=== PATIENT | male | born 1955 | race Caucasian/White ===

== ENCOUNTER 2024-07-19 10:06 | Outpatient (OUT) | payer MEDICARE, OTHER, SELFPAY ==
--- NOTE | 2024-07-19 | ECG_ITS ---
[facility] Test Date: 2024-07-19 Pat Name: Abran Horne Department: Room: - Gender: Male Sub Prior: : 1955 Requested By: NADER MALONE Order Number: [id number] Reading MD: RHYS BRITO Measurements Intervals [place] Rate: 66 P: 54 W[place]: 158 QRS: 75 QRSD: 82 T: 48 QT: 370 QTc: 389 Interpretive Statements SINUS RHYTHM NONSPECIFIC ST & T-WAVE ABNORMALITY No previous ECG available for comparison Electronically Signed On 07-19-2024 19:47:26 EST by RHYS BRITO
[2024-07-19 10:48] LABS: Basophils Percent Auto 0.3 % (0.2-2.0); Eosinophils Absolute Auto 0.2 10^3/uL (0.0-0.7); Eosinophils Percent Auto 3.5 % (0.9-7.0); Hematocrit 49.3 % (42.0-54.0); Hemoglobin 16.6 g/dL (14.0-18.0); Immature Granulocytes Abs Auto 0.02 10^3/uL (0.00-0.03); Immature Granulocytes Pct Auto 0.3 % (0.0-0.5); Lymphocytes Percent Auto 30.7 % (20.5-60.0); Mean Corpuscular HGB Conc 33.7 g/dL (29.9-35.2); Mean Corpuscular Hemoglobin 30.2 pg (25.9-34.0); Mean Corpuscular Volume 89.8 fL (80.0-94.0); Mean Platelet Volume 9.6 fL (9.5-13.5); Monocytes Absolute Auto 0.8 10^3/uL (0.3-0.8); Monocytes Percent Auto 12.2 % (1.7-12.0); Neutrophils Absolute Auto 3.4 10^3/uL (1.4-6.5); Platelet Count 164 10^3/uL (150-450); Red Blood Count 5.49 10^6/uL (4.70-6.10); Red Cell Distribution Width 15.1 % (11.0-15.0); White Blood Count 6.5 10^3/uL (4.0-11.0)
[2024-07-19 11:02] LABS: INR 1.03; Partial Thromboplastin Time 28.7 sec (22.3-36.2); Prothrombin Time 10.9 sec (9.0-11.6)
[2024-07-19 11:17] LABS: BUN Creatinine Ratio 14.7; Carbon Dioxide 31.7 mmol/L (21.0-32.0); Chloride 103 mmol/L (98-107); Estimated GFR (African America >60 (>=60 mL/min/1.73m^2); Estimated GFR (Non-African Ame >60 (>=60 mL/min/1.73m^2); Glucose 105 mg/dL (74-106); Potassium 4.7 mmol/L (3.5-5.1); Sodium 138 mmol/L (136-145)
== END 2024-07-19 10:07 | disposition home or self-care (01) ==
LOC: LAB 10:11
PROVIDERS: PCP Family Medicine; Visit Provider Urology
DX: M54.50 Low back pain, unspecified (principal); I10 Essential (primary) hypertension; R97.20 Elevated prostate specific antigen [PSA]; Z87.891 Personal history of nicotine dependence
CPT/HCPCS: 36415; 80048; 85025; 85610; 85730; 93005

== ENCOUNTER 2025-01-04 13:27 | Outpatient (OUT) | payer MEDICARE, OTHER, SELFPAY ==
--- OUTSIDE RECORDS SUMMARY | 2024-12-29 23:59 | XMS_ITS | Continuity of Care Document ---
Author Organization [facility] Address [address] [place] [address] Care Team Providers Care Sales Force Administrator Name Role Phone Rodney Davis Primary Care Physician Encounter [facility] [id number] Date(s): 12/29/24 - 12/29/[address] [address]- Discharge Disposition: Home (Routine DC) Attending Physician: Jessica Ngo Encounter Type: Clinic Allergies, Adverse Reactions, Alerts No Known Allergies Assessment and Plan Future Appointments Appointment Date:03/09/2025 11:00:00 AM Scheduled Provider: Location:[facility] Appointment Type:FM Medicare Wellness Subsequent Immunizations Not Given Vaccine Date Status Refusal Reason pneumococcal 13-valent vaccine 03/08/24 Not Given Refused by parent, guardian, or patient - reschedule influenza virus vaccine, inactivated 03/08/24 Not Given Patient Refuses influenza virus vaccine, inactivated 06/22/23 Not Given Refused by parent, g uardian, or patient - reschedule influenza virus vaccine, inactivated 03/30/23 Not Given Patient Refuses influenza virus vaccine, inactivated 09/03/21 Not Given Refused by parent, g uardian, or patient - reschedule SARS-CoV-2 (COVID-19) Ad26 vaccine 09/03/21 Not Gi nicholas Patient Refuses Medications docusate 100 mg, Oral, BID, Refills(s) 0 Start Date: 11/29/24 Status: Ordered Repeat number: 1 oxyCODONE 5 mg Tab 5 mg = 1 tab(s), Oral, q6hr, PRN as needed for pain, X 12 dose(s), Refills(s) 0 Start Date: 11/29/24 Status: Ordered Repeat number: 1 Problem List Condition Confirmation Course Effective Dates Status H ealth Status Informant Back pain Confirmed Active BMI 28.0-28.9,adult Confirmed Resolved Overweight (BMI 25.0-29.9) Confirmed Active BMI 30.0-30.9,adult Confirmed Active Chronic pain Confirmed Active Difficulty walking Confirmed Active Dizziness Confirmed Active Eczema Confirmed Active Clubbed fingers Confirmed Active Hip joint prosthesis present Confirmed Active History of total replacement of left hip joint Confirmed Active HTN (hypertension) Confirmed Active Lung cancer screening declined by patient Confirmed Active Prostate cancer Confirmed Active Osteoarthrosis, hip Confirmed Active BMI 29.0-29.9,adult Confirmed Active Elevated PSA Confirmed Active Smoker Confirmed Active Procedures Procedure Date Related Diagnosis Body Site Status MR/US fusion guided prostate biopsy 08/02/24 Completed Ankle fracture Completed Blood clot Completed Hip arthroplasty Complete d Social History Social History Type Response Smoking Status 10 or more cigarette s (1/2 pack or more)/day in last 30 days;Never; Type: Cigarettes; Concerns about tobacco use in household: No; Smoking Cessation Yes 1 entered on: 08/15/24 Sex Male Sex Representation Male (finding) 1Patient admites to 1/2 pack a day since age of 15 years. Patient Care team information Care Team Personnel Name: Blaise Galarza Position: FT Wedger Machine - Self Assign Member Role: Collar Fuser Name: Ryan DAMIAN, Rodney Fleming Member Role: Primary Care Physician Address: [address] [place] [address] Telecom: Care Team Related Persons Name: BUSHRA CARPIO Name: BUSHRA CARPIO Insurance Providers Guarantor name: Health Plan Information #: 1 Payer: NA Payer Identifier: [id number] Member Number: [id number] Group Number: [id number] Subscriber Identifier: [id number] Relationship to Subscriber: Self Coverage Type: MEDICARE Coverage Verification Date: NA Telecom: NA Address: Health Plan Information #: 2 Payer: NA Payer Identifier: [id number] Member Number: [id number] Group Number: PlanN Subscriber Identifier: [id number] Relationship to Subscriber: Self Coverage Type: PRIVATE HEALTH INSURANCE Coverage Verification Date: NA Telecom: NA Address: NA
--- OUTSIDE RECORDS SUMMARY | 2025-01-04 13:31 | XMS_ITS | Clinical Summary ---
Author Organization [facility] Address [address] [place] [place] [address] Care Team Providers Care Sales Support Advisor Name Role Phone Rodney Davis MD Primary Care Provider [phone] Allergies No known active allergies Medications No known medications Active Problems Problem Noted Date Diagnosed Date History of total left hip replacement 09/10/2023 Primary osteoarthritis of left hip 09/10/2023 Encounters Date Type Department Care Team Description 10/18/2024 11:15 AM EDT Office Visit [facility] [address] [place] [address] [phone] Jr. Ike Avila DO Primary osteoarthritis of right hip (Primary Dx); Right hip pain 10/18/2024 Bamboo flowsheet [facility] [place] [address] [phone] Jr. Ike Avila DO 10/18/2024 Travel 10/10/2024 2:15 PM EDT Office Visit [facility] [place] [address] Ambrocio Dawson NP Primary osteoarthritis of right hip (Primary Dx); Right hip pain 10/10/2024 Bamboo flowsheet [facility] [address] [place] [address] Ambrocio Dawson NP 10/10/2024 Travel from Last 3 Months Family History Relation Name Status Comments Father Mother Social History Tobacco Use Types Packs/Day Years Used Date Smoking Tobacco: Every Day Cigarettes Smokeless Tobacco: Never Tobacco Cessation:Ready to Q uit: Not Asked; Counseling Given: Not Answered Alcohol Use Standard Drinks/Week Comments Yes 0 (1 standard drink = 0.6 oz pur e alcohol) 12-20/WK Sex and Gender Information Value Date Recorded Sex Assigned at Not on file Legal Sex Male 7:25 PM EDT Gender Identity Not on file Sexual Orientation Not on file Last Filed Vital Signs Vital Sign Reading Time Taken Comments Blood Pressure - - Pulse - - Temperature - - Respiratory Rate - - Oxygen Saturation - - Inhaled Oxygen Concentration - - Weight 99.8 kg (220 lb) 10/18/2024 11:37 AM EDT Height 182.9 cm (6') 10/18/2024 11:37 AM EDT Body Mass Index 29.84 10/18/2024 11:37 AM EDT Plan of Treatment Not on file Insurance MEDICARE [facility] [place]ANN FERRIS [id number] Care Teams Sales Support Advisor Relationship Specialty Start Date End Date Rodney Davis MD PCP - General Family Medicine 09/15/23
--- OUTSIDE RECORDS SUMMARY | 2025-01-04 13:31 | XMS_ITS | Clinical Summary ---
Author Organization [facility] Address [address] [place] [id number] Care Team Providers Care Ict Account Manager Name Role Phone Prasanna Campbell MD Unavailable Rodney Davis MD Primary Care Provider [phone] Allergies No known active allergies Medications oxybutynin (DITROPAN) 5 mg tablet Take 1 tablet by mouth three times a day for 7 days. 21 tablet 11/28/2024 11:57 AM EDT 11/28/2024 Active Tadalafil (CIALIS) 5 mg tablet Take 1 tablet by mouth once daily. 30 tablet 2 12/09/2024 03/09/20 25 Active apixaban (ELIQUIS) 2.5 mg tab(s) Take 1 tablet by mouth two times a day for 21 days. 42 tablet 11/28/2024 11:57 AM EDT 11/28/2024 12/20/19 25 oxyCODONE IR (ROXICODONE) 5 mg immediate release tabletIndicatio ns:Postoperativ e pain Take 1 tablet by mouth every 6 hours as needed for pain for up to 12 doses. 12 tablet 11/28/2024 11:57 AM EDT 11/28/2024 12/06/19 25 docusate sodium (COLACE) 100 mg capsule Take 1 capsule by mouth two times a day. 60 capsule 11/28/2024 12/29/19 25 Active Problems Problem Noted Date Diagnosed Date Nicotine use disorder, F17.2 11/29/2024 Tobacco use 11/18/2024 Assessment & Plan (11/18/2024 9:53 AM EDT): -Smokes 5 packs per week -37.5 pack year history Right hip pain 11/18/2024 Assessment & Plan (11/18/2024 9:53 AM EDT): -Takes Aleve PRN -Uses cane with ambulation History of DVT (deep vein thrombosis) 11/18/2024 Assessment & Plan (11/18/2024 9:54 AM EDT): -Hx in RLE approx 10 years ago -Treated acutely with blood thinner -Denies known recurrences HTN (hypertension) 11/18/2024 Assessment & Plan (11/18/2024 9:55 AM EDT): -Patient has been prescribed losartan by his PCP, did not fill the prescription d/t insurance issues and cost -BP today 141/74 -Denies cardiac symptoms -EKG pending Prostate cancer 11/01/2024 Encounters Date Type Department Care Team Description 12/09/2024 2:30 PM EDT [facility] Urology [address] [place] [id number] Suzy Mckeon MD Prostate cancer (HCC) (Primary Dx) 11/25/2024 10:40 AM EDT Anesthesia Event Admitting [address] [place] [address] Timothy Caballero DO Chapman, Madeline, FRANK 11/25/2024 10:01 AM EDT - 11/25/2024 4:12 PM EDT Surgery Admitting [address] [place] [address] John Saucedo MD ROBOTIC LAPAROSCOPIC RETROPUBIC RADICAL PROSTATECTOMY W/ NERVE SPARING 11/25/2024 7:25 AM EDT - 11/28/2024 2:55 PM EDT Hospital Encounter HOSP MAIN [id number] [address] [place] [address] John Saucedo MD Malignant neoplasm of prostate (HCC) [C61] Discharge Disposition: Home 11/25/2024 Travel 11/18/2024 2:30 PM EDT Office Visit Urology [address] [address] Stacy Barriga APRN.CNP Pre-op exam (Primary Dx); Screening for genitourinary condition 11/18/2024 12:50 PM EDT Procedure Cardiology [address] [address] 11/18/2024 10:50 AM EDT PAT Pre Anesthesia [address] [address] 5, Pacc Main Pre-op evaluation (Primary Dx); Tobacco use; Right hip pain; History of DVT (deep vein thrombosis); Hypertension, unspecified type 11/18/2024 Travel 11/18/2024 Patient Outreach Urology [address] [address] Stacy Barriga APRN.CNP 11/08/2024 Patient Update [facility] [place] [address] Barbi Gonzalez RN 11/01/2024 2:10 PM EDT Office Visit Urology [address] [address] John Saucedo MD Prostate cancer (HCC) (Primary Dx); Screening for genitourinary condition 11/01/2024 Travel 11/01/2024 Patient Outreach Urology [address] [address] John Saucedo MD from Last 3 Months Family History Medical History Relation Comments Colon Cancer Father Cervical Cancer Mother Anesthesia Problems No Family History Relation Status Comments Father Mother Social History Tobacco Use Types Packs/Day Years Used Date Smoking Tobacco: Every Day Cigarettes 0.8 50 Smokeless Tobacco: Never Tobacco Cessation:Ready to Q uit: Not Asked; Counseling Given: Not Answered Comments:5 packs per week Alcohol Use Standard Drinks/Week Comments Yes 15 (1 standard drink = 0.6 oz pu re alcohol) 12 pack beers per week Sex and Gender Information Value Date Recorded Sex Assigned at Not on file Legal Sex Male 11:35 AM EDT Gender Identity Not on file Sexual Orientation Not on file Last Filed Vital Signs Vital Sign Reading Time Taken Comments Blood Pressure 154/83 11/28/2024 7:45 AM EDT Pulse 75 11/28/2024 7:45 AM EDT Temperature 36.9 C (98.4 F) 11/28/2024 3:10 AM EDT Respiratory Rate 16 11/28/2024 3:10 AM EDT Oxygen Saturation 94% 11/28/2024 7:45 AM EDT Inhaled Oxygen Concentration - - Weight 96.2 kg (212 lb) 11/25/2024 8:15 AM EDT Height 182.9 cm (6') 11/25/2024 8:15 AM EDT Body Mass Index 28.75 11/25/2024 8:15 AM EDT Plan of Treatment Upcoming Encounters Date Type Department Care Team (Latest Contact Info) Description 01/25/2025 9:15 AM EDT [facility] Urology [address] [address] Delphine Reyes MD [address] [place] [address] Provider phone call 03/28/2025 1:10 PM EDT Office Visit Urology [address] [address] John Saucedo MD [address] [address] 4 Month Follow Up Health Maintenance Due Date Last Done Comments Abdominal Aortic Aneurysm Screening 1954 Annual PCP Team Chronic Dise ase Visit 1972 Anxiety Screening 1972 Depression Screening 1972 Hepatitis C Screening 1972 DTaP,Tdap,Td Vaccine (1 - Tdap) 1973 Pneumococcal Vaccine: 50+ (1 of 2 - PCV) [address] Colonography 1999 Colonoscopy 1999 Fecal Occult Blood 1999 Sigmoidoscopy 1999 Lung Cancer Screening 2004 Shingrix Vaccine (1 of 2) 2004 RSV Vaccine (1 - Risk 60-74 years 1-dose series) 2014 Medicare Annual Wellness Visit 08/06/2019 Covid-19 Vaccine (1 - 2023-2 5 season) 2024 Advance Directive Discussion 07/06/2024 Influenza Vaccine (Season Ended) 2025 Cologuard (FIT-DNA) 03/18/2025 03/18/2022 Colorectal Cancer Screening 03/18/2025 Diabetes Screening 11/29/2027 11/28/2024, 0 11/27/2024, 11/26/2024, Additional history exists Medical Devices Implanted Type Area Swine Extension Field Specialist Device Identifier Shelf Expiration Date Model / Serial / Lot Screws And Plate 25 Years Ago Neck Left Hip Replacement 2021 Bone - Hip Procedures Procedure Name Priority Date/Time Associated Diagnosis Comments BASIC METABOLIC PANEL Routine 11/28/2024 5:36 AM EDT COMPLETE BLOOD COUNT Routine 11/28/2024 5:36 AM EDT BASIC METABOLIC PANEL STAT 11/27/2024 6:50 AM EDT COMPLETE BLOOD COUNT STAT 11/27/2024 6:50 AM EDT BASIC METABOLIC PANEL Routine 11/26/2024 5:36 AM EDT CBC + DIFF Routine 11/26/2024 5:36 AM EDT TOX SCREEN ROUT UR Routine 11/26/2024 5: 25 AM EDT PROTHROMBIN TIME Routine 11/25/2024 5:40 PM EDT GGT BLD Routine 11/25/2024 5:40 PM EDT ETHANOL CONFIRMATION, PLASMA Routine 11/25/2024 5:40 PM EDT CBC + DIFF STAT 11/25/2024 5:40 PM EDT BASIC METABOLIC PANEL STAT 11/25/2024 5:40 PM EDT SURGICAL PATHOLOGY Routine 11/25/2024 4: 15 PM EDT Malignant neoplasm of prostate (HCC) PERIPHERAL IV PLACEMENT Routine 11/25/2024 10:57 AM EDT INTUBATION Routine 11/25/2024 10:55 AM EDT LAPS PROSTECT RETROPUBIC RAD W/NRV SPARING ROBOT 11/25/2024 10:24 AM EDT Malignant neoplasm of prostate (HCC) UA DIP, URINE (POC) Routine 11/18/2024 1 1:04 AM EDT Screening for genitourinary condition ECG COMPLETE Routine 11/18/2024 9:09 AM EDT Malignant neoplasm of prostate (HCC) CONFIRM BLOOD TYPE Routine 11/18/2024 9: 00 AM EDT Malignant neoplasm of prostate (HCC) TYPE + SCREEN,30 DAY Routine 11/18/2024 8:56 AM EDT Malignant neoplasm of prostate (HCC) PROTHROMBIN TIME Routine 11/18/2024 8:56 AM EDT Malignant neoplasm of prostate (HCC) Neoplasm of unspecified behavior of unspecified site ACTIVATED PTT Routine 11/18/2024 8:56 AM EDT Malignant neoplasm of prostate (HCC) Neoplasm of unspecified behavior of unspecified site COMPREHENSIVE METABOLIC PANEL Routine 11/18/2024 8:56 AM EDT Malignant neoplasm of prostate (HCC) COMPLETE BLOOD COUNT Routine 11/18/2024 8:56 AM EDT Malignant neoplasm of prostate (HCC) EXTERNAL IMAGING 10/14/2024 8:04 AM EDT EXTERNAL LAB 10/14/2024 8:02 AM EDT EXTERNAL IMAGING 10/14/2024 8:01 AM EDT from Last 3 Months Results * (ABNORMAL) COMPLETE BLOOD COUNT (11/28/2024 5:36 AM EDT) Only the most recent of3 resultswithin the time period is included. WBC 5.50 3.70 - 11.00 k/uL 11/28/2024 7:29 AM EDT [facility] RBC 4.64 4.20 - 6.00 m/uL 11/28/2024 7:29 AM EDT [facility] Hemoglobin 14.1 13.0 - 17.0 g/dL 11/28/2024 7:29 AM EDT [facility] Hematocrit 41.9 39.0 - 51.0 % 11/28/2024 7:29 AM EDT [facility] MCV 90.3 80.0 - 100.0 fL 11/28/2024 7:29 AM EDT [facility] MCH 30.4 26.0 - 34.0 pg 11/28/2024 7:29 AM EDT [facility] MCHC 33.7 30.5 - 36.0 g/dL 11/28/2024 7:29 AM EDT [facility] RDW-CV 16.3(H) 11.5 - 15.0 % 11/28/2024 7:29 AM EDT [facility] Platelet Count 140(L) 150 - 400 k/uL 11/28/2024 7:29 AM EDT [facility] Comment:Results checked and verified.No clot detected. MPV 10.0 9.0 - 12.7 fL 11/28/2024 7:29 AM EDT [facility] Absolute nRBC <0.01 <0.01 k/uL 11/28/2024 7:29 AM EDT [facility] Blood BLOOD SPECIMEN / Unknown Venipuncture / Unknown 11/28/2024 5:36 AM EDT 11/28/2024 6:17 AM EDT us John Saucedo MD LABORATORY Final Result [facility] [address] [facility] [address] [address], * BASIC METABOLIC PANEL (11/28/2024 5:36 AM EDT) Only the most recent of4 resultswithin the time period is included. [facility] Glucose 96 74 - 99 mg/dL 11/28/2024 7:15 AM [facility] Comment: The [place] Diabetes Association (ADA) provides guidance for cutoff values for fasting glucose and random glucose. The ADA defines fasting as no caloric intake for at least 8 hours. Fasting plasma glucose results between 100 to 125 mg/dL indicate increased risk for diabetes (prediabetes). Fasting plasma glucose results greater than or equal to 126 mg/dL meet the criteria for diagnosis of diabetes. In the absence of unequivocal hyperglycemia, results should be confirmed by repeat testing. In a patient with classic symptoms of hyperglycemia or hyperglycemic crisis, random plasma glucose results greater than or equal to 200 mg/dL meet the criteria for diagnosis of diabetes. Reference: Standards of Medical Care in Diabetes 2016, [place] [employer] Association. Diabetes Care. 2016.39(Suppl 1). BUN 16 9 - 24 mg/dL 11/28/2024 7:15 AM [facility] Creatinine 0.90 0.73 - 1.22 mg/dL 11/28/2024 7:15 AM [facility] Sodium 137 136 - 144 mmol/L 11/28/2024 7:15 AM [facility] Potassium 4.4 3.7 - 5.1 mmol/L 11/28/2024 7:15 AM [facility] Chloride 101 98 - 107 mmol/L 11/28/2024 7:15 AM [facility] CO2 26 22 - 30 mmol/L 11/28/2024 7:15 AM [facility] Anion Gap 10 8 - 15 mmol/L 11/28/2024 7:15 AM [facility] Calcium, Total 8.9 8.5 - 10.2 mg/dL 11/28/2024 7:15 AM [facility] Estimated Glomerular Filtration Rate 92 >=60 mL/min/1.7 3m 11/28/2024 7:15 AM [facility] Comment:Estimated Glomerular Filtration Rate (eGFR) is calculated using the 2020 CKD-EPI creatinine equation. This equation utilizes serum creatinine, sex, and age as parameters. The creatinine assay has traceable calibration to isotope dilution- mass spectrometry. Refer to KDIGO guidelines for clinical interpretation. In patients with unstable renal function, e.g. those with acute kidney injury, the eGFR may not accurately reflect actual GFR. Blood BLOOD SPECIMEN / Unknown Venipuncture / Unknown 11/28/2024 5:36 AM EDT 11/28/2024 6:17 AM EDT us John Saucedo MD LABORATORY Final Result [facility] [address] [facility] [address] [address], * (ABNORMAL) COMPLETE BLOOD COUNT AND DIFFERENTIAL (11/26/2024 5:36 AM EDT) Only the most recent of2 resultswithin the time period is included. WBC 10.04 3.70 - 11.00 k/uL 11/26/2024 7:02 AM EDT [facility] RBC 4.77 4.20 - 6.00 m/uL 11/26/2024 7:02 AM EDT [facility] Hemoglobin 14.3 13.0 - 17.0 g/dL 11/26/2024 7:02 AM EDT [facility] Hematocrit 42.2 39.0 - 51.0 % 11/26/2024 7:02 AM EDT [facility] MCV 88.5 80.0 - 100.0 fL 11/26/2024 7:02 AM EDT [facility] MCH 30.0 26.0 - 34.0 pg 11/26/2024 7:02 AM EDT [facility] MCHC 33.9 30.5 - 36.0 g/dL 11/26/2024 7:02 AM EDT [facility] RDW-CV 16.4(H) 11.5 - 15.0 % 11/26/2024 7:02 AM EDT [facility] Platelet Count 158 150 - 400 k/uL 11/26/2024 7:02 AM EDT [facility] MPV 10.1 9.0 - 12.7 fL 11/26/2024 7:02 AM EDT [facility] Neutrophils % 71.2 % 11/26/2024 7:02 AM EDT [facility] Abs Neut 7.15 1.45 - 7.50 k/uL 11/26/2024 7:02 AM EDT [facility] Lymphocytes % 12.4 % 11/26/2024 7:02 AM EDT [facility] Abs Lymph 1.24 1.00 - 4.00 k/uL 11/26/2024 7:02 AM EDT [facility] Monocytes % 15.7 % 11/26/2024 7:02 AM EDT [facility] Abs Burnett 1.58(H) <0.87 k/uL 11/26/2024 7:02 AM EDT [facility] Eosinophils % 0.1 % 11/26/2024 7:02 AM EDT [facility] Abs Eosin <0.03 <0.46 k/uL 11/26/2024 7:02 AM EDT [facility] Basophils % 0.2 % 11/26/2024 7:02 AM EDT [facility] Abs Baso <0.03 <0.11 k/uL 11/26/2024 7:02 AM EDT [facility] Immature Granulocytes % 0.4 % 11/26/2024 7:02 AM EDT [facility] Abs Immature Gran 0.04 <0.10 k/uL 025 7:02 AM EDT [facility] NRBC 0.0 /100 WBC 11/26/2024 7:02 AM EDT [facility] Absolute nRBC <0.01 <0.01 k/uL 11/26/2024 7:02 AM EDT [facility] Diff Type Auto 11/26/2024 7:02 AM EDT [facility] Blood BLOOD SPECIMEN / Unknown Venipuncture / Unknown 11/26/2024 5:36 AM EDT 11/26/2024 6:53 AM EDT us John Saucedo MD LABORATORY Final Result [facility] [address] [place] [address], * (ABNORMAL) TOXICOLOGY SCREEN, ROUTINE URINE (11/26/2024 5:25 AM EDT) Phencyclidine , Urine Negative Negative 11/26/2024 9:30 AM [facility] Comment:Cutoff threshold at 25 ng/mL. Benzodiazepin es, Urine Preliminary positive(A) Negative 11/26/2024 9:30 AM [facility] Comment:Cutoff threshold at 200 ng/mL. Cocaine, Urine Negative Negative 11/26/2024 9:30 AM [facility] Comment:Cutoff threshold at 300 ng/mL. Amphetamines, Urine Negative Negative 11/26/2024 9:30 AM [facility] Comment:Cutoff threshold at 1000 ng/mL. Cannabinoids, Urine Preliminary positive(A) Negative 11/26/2024 9:30 AM [facility] Comment:Cutoff threshold at 50 ng/mL. Opiates, Urine Negative Negative 11/26/2024 9:30 AM [facility] Comment:Cutoff threshold at 300 ng/mL. Barbiturates, Urine Negative Negative 11/26/2024 9:30 AM [facility] Comment:Cutoff threshold at 200 ng/mL. Ethanol, Urine <11 <11 mg/dL 11/26/2024 9:30 AM [facility] Oxycodone, Urine Preliminary positive(A) Negative 11/26/2024 9:30 AM [facility] Comment:Cutoff threshold at 100 ng/mL. Urine URINE SPECIMEN / Unknown Non Blood / Unknown 11/26/2024 5:25 AM EDT 11/26/2024 7:13 AM EDT [facility] - 11/26/2024 9:30 AM EDT Immunoassay screen only. Cross reactivity with other substances can occur with immunoassay screening. Detection of any drug(s) in this urine toxicology panel is presumptive only. These tests are for medical purposes only and should not be used for compliance monitoring, legal, or forensic use. Samples should be within normal physiological conditions (e.g. pH). This assay does not include adulteration/specimen validity testing. In clinical settings, confirmatory testing is at the practitioner's discretion [1]. If clinically indicated, confirmation by high specificity, quantitative methodology, which includes adulteration/specimen validity testing, may be requested on the same specimen through Client Services ([phone]) if contacted within 48 hours of initial testing. [1]Substance Abuse and Mental Health Services Administration (2012). Clinical Drug Testing in Primary Care Technical Assistance Publication Series 32. Department of Health and Human Services, [place], p.10. Delphine Reyes MD LABORATORY Final Result Performing Organization Address [facility] Co de Phone Number [facility] [address] [place] [address], [place] * ETHANOL CONFIRMATION, PLASMA (11/25/2024 5:40 PM EDT) Ethanol Conf, Plasma <5 <5 mg/dL 11/04 7:56 PM EDT [facility] Comment: Therapeutic range for methanol toxicity 100 - 150 mg/dL. Source: AACT Practice Guidelines on the Treatment of Methanol Poisoning. For medical purposes only. Not valid for forensic use. This test was developed, and its performance characteristics determined by the [facility] Department of Pathology and Laboratory Medicine. It has not been cleared or approved by the FDA. The [facility] Department of Pathology and Laboratory Medicine is regulated under CLIA as qualified to perform high- complexity testing. This test is used for clinical purposes. It should not be regarded as investigational or for research. Blood BLOOD SPECIMEN / Unknown Venipuncture / Unknown 11/25/2024 5:40 PM EDT 11/25/2024 5:54 PM EDT John Saucedo MD LABORATORY Final Result Performing Organization Address [facility] Co de Phone Number [facility] [address] [place] [address], [place] * PROTHROMBIN TIME (11/25/2024 5:40 PM EDT) Only the most recent of2 resultswithin the time period is included. PT Sec 11.7 9.7 - 13.0 sec 11/25/2024 6:06 PM EDT [facility] INR 1.1 0.9 - 1.3 11/25/2024 6:06 PM EDT [facility] Comment: Vitamin K Antagonist (VKA) Therapeutic Range: INR 2 to 3 (Target INR of 2.5) Note: For patients treated with VKA drugs, such as warfarin, the [place] [employer] 2012 Guideline recommends a therapeutic INR range of 2 to 3 (target INR of 2.5). This recommendation includes high-risk patients with antiphospholipid syndrome with previous arterial or venous thromboembolism, current-generation mechanical or bioprosthetic aortic heart valve replacement. Note: Patients with mechanical aortic valve replacement and additional risk factors for thromboembolic events (atrial fibrillation, previous thromboembolism, LV dysfunction, hypercoagulable conditions) or an older generation mechanical AVR (i.e., ball in-Cage) or any mechanical MVR should have a INR therapeutic range of 2.5 to 3.5 (target INR of 3). Guanako GH, et al. Chest 2012, 141:7S-47S Charis RA, et al. [facility] 2017, 70: 252-289 Blood BLOOD SPECIMEN / Unknown Venipuncture / Unknown 11/25/2024 5:40 PM EDT 11/25/2024 5:54 PM EDT us John Saucedo MD LABORATORY Final Result Performing Organization Address City/[facility]/ZIP Co de Phone Number [facility] [address] [place] [address], * GGT (11/25/2024 5:40 PM EDT) GGT 37 10 - 70 U/L 11/25/2024 7:04 PM EDT [facility] Blood BLOOD SPECIMEN / Unknown Venipuncture / Unknown 11/25/2024 5:40 PM EDT 11/25/2024 5:54 PM EDT John Saucedo MD LABORATORY Final Result Performing Organization Address City/[facility]/ZIP Co de Phone Number [facility] [address] * SURGICAL PATHOLOGY (11/25/2024 4:15 PM EDT) Case Report Surgical Pathology Report Case: [id number] Authorizing Provider: John Saucedo MD Collected: 11/25/2024 04:15 PM Ordering Location: Admitting Received: 11/25/2024 05:06 PM Pathologist: Kaveh Land MD Specimen: Prostate, Resection, prostate and seminal vesicles 12/09/2024 10:50 AM EDT [facility] FINAL DIAGNOSIS Prostate, radical prostatectomy: - Prostatic adenocarcinoma, Miah score 3+4=7 (Grade Group 2). - Extraprostatic extension is identified. - Lymphovascular invasion is identified. - Seminal vesicles are negative for malignancy. Radical Prostatectomy Morphology Summary Unfavorable histology: Present (Less than 10%) Large cribriform pattern 4: Present Intraductal carcinoma: Absent 12/09/2024 10:50 AM EDT [facility] at 1050 EDT Block for additional Biomarkers/Mol ecular studies A9 12/09/2024 10:50 AM EDT [facility] Synoptic Report PROSTATE GLAND: Radical Prostatectomy PROSTATE GLAND: RESECTION - A 8th Edition - Protocol posted: 03/25/2023 SPECIMEN Procedure: Radical prostatectomy TUMOR Histologic Type: Acinar adenocarcinoma, conventional (usual) Histologic Grade: Grade: Grade group 2 (Miah Score 3 + 4 = 7) Percentage of Pattern 4: 6 - 10% Intraductal Carcinoma (IDC): Not identified Cribriform Glands: Present Treatment Effect: Not identified TUMOR QUANTITATION: Estimated Percentage of Prostate Involved by Tumor: 21 - 30% Extraprostatic Extension (EPE): Present, nonfocal Urinary Bladder Neck Invasion: Not identified Seminal Vesicle Invasion: Not identified Lymphatic and / or Vascular Invasion: Present MARGINS Margin Status: Invasive carcinoma present at margin Linear Length of Margin(s) Involved by Carcinoma: Greater than or equal to 3 mm (non-limited) Focality of Margin Involvement: Unifocal Margin(s) Involved by Invasive Carcinoma: Right posterolateral (neurovascular bundle) REGIONAL LYMPH NODES Regional Lymph Node Status: Not applicable (no regional lymph nodes submitted or found) pTNM CLASSIFICATION (AJCC 8th Edition) Reporting of pT, pN, and (when applicable) pM categories is based on information available to the pathologist at the time the report is issued. As per the AJCC (Chapter 1, 8th Ed.) it is the managing physician s responsibility to establish the final pathologic stage based upon all pertinent information, including but potentially not limited to this pathology report. pT Category: pT3a pN Category: pN not assigned (no nodes submitted or found) ADDITIONAL FINDINGS Additional Findings: High-grade prostatic intraepithelial neoplasia (PIN) Additional Findings: Nodular prostatic hyperplasia 12/09/2024 10:50 AM EDT [facility] Gross Description A. Prostate, Resection Received in formalin labeled prostate and seminal vesicles is a prostate with attached seminal vesicles. The prostate without seminal vesicles weighs 40.0 g and measures 4.0 cm craniocaudally, 3.5 cm anteroposteriorly, and 4.4 cm transversely. The capsular surface is smooth and complete. The apex is conical. Upon palpation, no areas of firmness are identified. The gland is inked with blue ink on the right and yellow on the left. It is then dipped in alcohol to fix the ink and fixed in formalin for 24 hours. After fixation, a bladder neck section is obtained and the gland is serially sectioned from apex to base at 3 mm slices. An ink dot is placed in the basal side of each slice of tissue except for the basal section which is dotted on the apical surface. The cross sections reveal an ill-defined wang-white firm area in the right lateral and posterior aspect of the 6 to 18 mm slices measuring 1.5 x 1.2 x 1.2 cm. It extends to the periphery of the specimen. Rubbery nodularity is present. The seminal vesicles are unremarkable. Portions of vas deferens are unremarkable. Also received are multiple fragments of yellow-wang fibroadipose tissue aggregating to 4.4 x 3.5 x 1.0 cm. Sectioning reveals unremarkable fibroadipose tissue. Patternmaker Helper sections are submitted as follows: A1 right apex A2 left apex A3 right bladder neck A4 left bladder neck A5 3 mm right A6 3 mm left A7 6 mm right A8 6 mm left A9 9 mm posterior right A10 9 mm posterior left A11 12 mm anterior right A12 12 mm anterior left A13 12 mm posterior right A14 12 mm posterior left A15 15 mm posterior right A16 15 mm posterior left A17 18 mm anterior right A18 18 mm anterior left A19 18 mm posterior right A20 18 mm posterior left A21 21 mm posterior right A22 21 mm posterior left A23 24 mm anterior right A24 24 mm anterior left A25 24 mm posterior right A26 24 mm posterior left A27 27 mm posterior right A28 27 mm posterior left A29 30 mm anterior right A30 30 mm anterior left A31 30 mm posterior right A32 30 mm posterior left A33 33 mm posterior right A34 33 mm posterior left A35 right seminal vesicle A36 left seminal vesicle A37-A38 additional fat totally submitted Gross examination performed at [facility], [address] [place], [place] [id number] [facility] 11/29/24 11:34 AM 12/09/2024 10:50 AM EDT [facility] Clinical History Pre-op diagnosis: Malignant neoplasm of prostate (HCC) [C61] 12/09/2024 10:50 AM EDT [facility] Performing Lab Diagnostic interpretation performed at: [facility], [address] [place] [address] CLIA# [id number] [place] Man: Brad Cantrell MD 12/09/2024 10:50 AM EDT [facility] Disclaimer Laboratory Developed Test (LDT) Disclaimer: Performance characteristics of immunohistochemica l, immunofluorescent, and chromogenic in-situ hybridization tests have been determined by the performing laboratory within [facility]'s [facility] Pathology and Laboratory Medicine Department ([facility], [facility][1], [facility], [facility], [facility], [facility], or [facility]) in a manner consistent with CLIA requirements. One or more of these tests may not have been cleared or approved by the FDA. [facility] is regulated under CLIA as qualified to perform high-complexity testing. These tests are used for clinical purposes. These should not be regarded as investigational or for research. Positive and negative controls stain appropriately. 12/09/2024 10:50 AM EDT [facility] Tissue RADICAL PROSTATECTOMY / Unknown 11/25/2024 4:15 PM EDT 11/25/2024 5:06 PM EDT Comment:Pre-op diagnosis: Malignant neoplasm of prostate (HCC) [C61] us John Saucedo MD SURGICAL PATHOLOGY Final Resul t [facility] [address] [facility] [address] [place] [address], [place] * PERIPHERAL IV PLACEMENT (11/25/2024 10:57 AM EDT) Narrative Kacy Ng SRNA - 11/25/2024 10:57 AM EDT Kacy Ng SRNA 11/25/2024 11:36 AM PIV General Information Procedure Start Time/Medication Administration: 11/25/2024 10:57 AM Procedure End Time: 11/25/2024 10:57 AM Patient Location: OR Staffing SRNA: Kacy Ng SRNA Performed by: FRANK Preparation Sterility Preparation: hand hygiene performed prior to procedure, sterile gloves, drapes, and procedure tray, surgical cap used, mask used Sterility Technique Not Completely Performed Due to Extreme Emergency: No Site Prep: alcohol Procedure Details Indication: need for IV access Needle Size/Type: 18 gauge angiocath Orientation: Right Location: Wrist Imaging Guidance Used: No us Rainer rFiend MD ANESTHESIA ORDERABLES Edited R esult - Final * Airway (11/25/2024 10:55 AM EDT) Narrative Rainer Friend MD - 11/25/2024 10:55 AM EDT Rainer Friend MD 11/25/2024 12:16 PM Airway General Information Procedure Start Time/Medication Administration: 11/25/2024 10:55 AM Procedure End Time: 11/25/2024 10:55 AM Patient location during procedure: OR Timeout Performed Pre-procedure: timeout performed Consent Obtained: Yes Patient identity confirmed: arm band and patient Staffing Anesthesiologist: Rainer Friend MD Performed by: anesthesiologist Indications and Patient Condition Indications for airway management: anesthesia and airway protection Preoxygenated: yes anesthesia circuit Patient position: sniffing Method: asleep Cricoid Pressure: No Manual In-Line Stabilization: No Difficult Mask: No Airway Accessory: oral airway Final Airway Details Final airway type: endotracheal airway Final Endotracheal Airway: ETT Cuffed: yes Successful intubation technique: video laryngoscopy Devices used: Dynamixyz Endotracheal tube insertion site: oral Blade: Aniket Blade size: #4 ETT size (mm): 7.5 Measured from: lips Measurement (cm): 23 Placement verified by: capnometry Cormack-Lehane Classification: grade I - full view of glottis Number of attempts at approach: 2 Ventilation between attempts: none Airway trauma: none. Failed airway: no Airway not difficult Comments Poor end tidal reading with first attempt by FRANK, second attempt by MD For this procedure, I personally performed this procedure. Rainer Friend MD us Rainer Friend MD ANESTHESIA ORDERABLES Edited R esult - Final * UA DIP, URINE (POC) (11/18/2024 11:04 AM EDT) GLUCOSE UA (POCT) Negative Negative mg/dL [facility] BILIRUBIN UA (POCT) Negative Negative [facility] KETONE UA (POCT) Negative Negative mg/dL [facility] SPECIFIC GRAVITY UA (POCT) 1.020 1.005 - 1.030 [facility] HEMOGLOBIN/BLOOD UA (POCT) Negative Negative [facility] PH UA (POCT) 5.5 4.5 - 8.0 [facility] PROTEIN UA (POCT) Negative Negative mg/dL [facility] UROBILINOGEN UA (POCT) 0.2 Normal E.U./dL [facility] NITRITE UA (POCT) Negative Negative [facility] LEUKOCYTES UA (POCT) Negative Negative [facility] COLOR UA (POCT) [facility] CLARITY UA (POCT) Clear [facility] Urine specimen (specimen) URINE SPECIMEN / Unknown 11/18/2024 11:04 AM EDT Narrative [facility] - 11/18/2024 11:04 AM EDT Location:[facility], [address] [place] [address], [id number] [place] Stacy Barriga APRN.OUTREACH REP POC TESTING Final Resul t [facility] [address] * ECG COMPLETE (11/18/2024 9:09 AM EDT) Ventricular Rate 65 BPM [facility] Atrial Rate 65 BPM [facility] P-R Interval 154 ms [facility] QRS Duration 84 ms [facility] QT Interval 382 ms [facility] QTC Calculation (Bazett) 397 ms [facility] Calculated P [place] 35 degrees [facility] Calculated R [place] 44 degrees [facility] Calculated T [place] 57 degrees [facility] 11/18/2024 9:09 AM EDT Impressions [facility] - 12/20/2024 9:31 AM EDT SINUS RHYTHM WITH PREMATURE ATRIAL COMPLEXES OTHERWISE NORMAL ECG Confirmed by ALFRED PERRY MD ([id number]) on 12/20/2024 9:31:22 AM Narrative [facility] - 12/20/2024 9:31 AM EDT NAME : ALFRED AREC PID : [id number] : 1955 Gender : Male Race : ORD : [id number] Procedure Date : Nov 18 2024 09:09:44 Edit Date : Dec 20 2024 09:31:24 Diagnosis: SINUS RHYTHM WITH PREMATURE ATRIAL COMPLEXES OTHERWISE NORMAL ECG Confirmed by ALFRED PERRY MD ([id number]) on 12/20/2024 9:31:22 AM Test Reason : Location : 119 : A17 A17 Overread By : ALFRED PERRY MD Edited By : ALFRED PERRY MD Referred By : , Acquired by : HAJA ZAMARRIPA John Saucedo MD EKG Final Result Performing Organization Address City/State/[facility] Co de Phone Number [facility] [address] [phone] * CONFIRM BLOOD TYPE (11/18/2024 9:00 AM EDT) ABO A 11/18/2024 3:13 PM EDT [facility] Rh(D) Positive 11/18/2024 3:13 PM EDT [facility] Blood BLOOD SPECIMEN / Unknown Venipuncture / Unknown 11/18/2024 9:00 AM EDT 11/18/2024 9:00 AM EDT John Saucedo MD BLOOD BANK Final Result Performing Organization Address City/[facility] Co de Phone Number [facility] [address] [address], * TYPE AND SCREEN,30 DAY (11/18/2024 8:56 AM EDT) ABO A 11/18/2024 7:07 PM EDT [facility] Rh(D) Positive 11/18/2024 7:07 PM EDT [facility] Antibody Screen Negative 11/18/2024 7:07 PM EDT [facility] Blood BLOOD SPECIMEN / Unknown Venipuncture / Unknown 11/18/2024 8:56 AM EDT 11/18/2024 8:56 AM EDT John Saucedo MD BLOOD BANK Final Result Performing Organization Address [facility] de Phone Number [facility] [address] [address], [place] * COMPREHENSIVE METABOLIC PANEL (11/18/2024 8:56 AM EDT) [facility] Protein, Total 7.1 6.3 - 8.0 g/dL 11/18/2024 2:44 PM EDT [facility] Albumin 4.4 3.9 - 4.9 g/dL 11/18/2024 2:44 PM EDT [facility] Calcium, Total 9.7 8.5 - 10.2 mg/dL 11/18/2024 2:44 PM EDT [facility] Bilirubin, Total 0.5 0.2 - 1.3 mg/dL 11/18/2024 2:44 PM EDT [facility] Alkaline Phosphatase 53 38 - 113 U/L 11/18/2024 2:44 PM EDT [facility] AST 14 14 - 40 U/L 11/18/2024 2:44 PM EDT [facility] ALT 18 10 - 54 U/L 11/18/2024 2:44 PM EDT [facility] Glucose 88 74 - 99 mg/dL 11/18/2024 2:44 [facility] Comment: The [place] Diabetes Association (ADA) provides guidance for cutoff values for fasting glucose and random glucose. The ADA defines fasting as no caloric intake for at least 8 hours. Fasting plasma glucose results between 100 to 125 mg/dL indicate increased risk for diabetes (prediabetes). Fasting plasma glucose results greater than or equal to 126 mg/dL meet the criteria for diagnosis of diabetes. In the absence of unequivocal hyperglycemia, results should be confirmed by repeat testing. In a patient with classic symptoms of hyperglycemia or hyperglycemic crisis, random plasma glucose results greater than or equal to 200 mg/dL meet the criteria for diagnosis of diabetes. Reference: Standards of Medical Care in Diabetes 2016, [place] Diabetes Association. Diabetes Care. 2016.39(Suppl 1). BUN 18 9 - 24 mg/dL 11/18/2024 2:44 PM [facility] Creatinine 1.08 0.73 - 1.22 mg/dL 11/18/2024 2:44 PM [facility] Sodium 137 136 - 144 mmol/L 11/18/2024 2:44 PM [facility] Potassium 4.7 3.7 - 5.1 mmol/L 11/18/2024 2:44 PM [facility] Chloride 99 98 - 107 mmol/L 11/18/2024 2:44 PM [facility] CO2 28 22 - 30 mmol/L 11/18/2024 2:44 PM [facility] Anion Gap 10 8 - 15 mmol/L 11/18/2024 2:44 PM [facility] Estimated Glomerular Filtration Rate 74 >=60 mL/min/1.7 3m 11/18/2024 2:44 PM [facility] Comment:Estimated Glomerular Filtration Rate (eGFR) is calculated using the 2020 CKD-EPI creatinine equation. This equation utilizes serum creatinine, sex, and age as parameters. The creatinine assay has traceable calibration to isotope dilution- mass spectrometry. Refer to KDIGO guidelines for clinical interpretation. In patients with unstable renal function, e.g. those with acute kidney injury, the eGFR may not accurately reflect actual GFR. Blood BLOOD SPECIMEN / Unknown Venipuncture / Unknown 11/18/2024 8:56 AM EDT 11/18/2024 8:56 AM EDT John Saucedo MD LABORATORY Final Result Performing Organization Address [facility] Co de Phone Number [facility] [address] [address], [place] * ACTIVATED PARTIAL THROMBOPLASTIN TIME (11/18/2024 8:56 AM EDT) APTT 28.8 23.0 - 32.4 sec 11/18/2024 10:20 AM EDT [facility] Blood BLOOD SPECIMEN / Unknown Venipuncture / Unknown 11/18/2024 8:56 AM EDT 11/18/2024 8:56 AM EDT Narrative [facility] - 11/18/2024 10:20 AM EDT Unfractionated Heparin Therapeutic Ranges: Standard Heparin Nomogram: 53 to 78 seconds (anti-Xa level of 0.3 to 0.7 U/ml) Low Dose/ACS Nomogram: 49 to 67 seconds (anti-Xa level of 0.2 to 0.5 U/ml) Stroke Treatment Nomogram: 49 to 67 seconds (anti-Xa level of 0.2 to 0.5 U/ml) Note: The APTT therapeutic range has been determined for the current lot of laboratory APTT reagent in use throughout the [facility]. John Saucedo MD LABORATORY Final Result Performing Organization Address [facility] de Phone Number [facility] [address] [address], [place] * EXTERNAL IMAGING (10/14/2024 8:04 AM EDT) Anatomical Region Laterality Modality Other us External Provider PA-C RADIOLOGY Final Res ult * EXTERNAL LAB (10/14/2024 8:02 AM EDT) us External Provider PA-C LABORATORY Final Res ult * EXTERNAL IMAGING (10/14/2024 8:01 AM EDT) Anatomical Region Laterality Modality Other us External Provider [facility] Final Res ult from Last 3 Months Insurance MEDICARE [facility] Care Teams Ict Account Manager Relationship Specialty Start Date End Date Rodney Davis MD [address] [place] [id number] PCP - General Family Medicine 09/19/24 Prasanna Campbell MD Urology 09/19/24
--- OUTSIDE RECORDS SUMMARY | 2025-01-04 13:31 | XMS_ITS | Clinical Summary ---
Author Organization [employer] s tem Address [id number] [address] [place] [address] Care Team Providers Care Professor Of Business Administration Name Role Phone Rodney Davis MD Primary Care Provider [phone] Allergies No known active allergies Medications acetaminophen (TYLENOL) 325 mg tablet Take 650 mg by mouth every 6 (six) hours as needed for pain. Active Active Problems Problem Noted Date Diagnosed Date Primary localized osteoarthritis of left hip 02/2022 Family History Medical History Relation Name Comments COPD Father No Known Problems Mother Relation Name Status Comments Father Mother Social History Tobacco Use Types Packs/Day Years Used Date Smoking Tobacco: Every Day Cigarettes Smokeless Tobacco: Never Alcohol Use Standard Drinks/Week Comments Yes 0 (1 standard drink = 0.6 oz pur e alcohol) weekends, 2-3 beers Childcare Answer Date Recorded Childcare Unknown 12/15/2018 Employment Answer Date Recorded Employment Unknown 12/15/2018 Sex and Gender Information Value Date Recorded Sex Assigned at Not on file Legal Sex Male 12:01 PM EDT Gender Identity Not on file Sexual Orientation Not on file Last Filed Vital Signs Vital Sign Reading Time Taken Comments Blood Pressure 153/77 09/13/2021 2:50 PM EST Pulse 96 09/13/2021 2:50 PM EST Temperature 36.9 C (98.5 F) 09/13/2021 2:50 PM EST Respiratory Rate 17 09/13/2021 2:50 PM EST Oxygen Saturation 95% 09/13/2021 2:50 PM EST Inhaled Oxygen Concentration - - Weight 90.7 kg (200 lb) 09/11/2021 9:20 AM EST Height 182.9 cm (6' 0.01 ) 09/11/2021 9:20 AM ES T Body Mass Index 27.12 09/11/2021 9:20 AM EST Plan of Treatment Health Maintenance Due Date Last Done Comments Depression Screening 1966 Tobacco Screening 1966 Adult BMI Screening 1972 DTaP,Tdap and Td Vaccines (1 - Tdap) 1973 Zoster (Shingles) Vaccine (1 of 2) 2004 Fall Risk Screening 2019 Influenza Vaccine 03/06/2025 Goals Goal Patient Goal Type Associated Problems Recent Progress Patient-Stated? Author Home with son General Yes Flor Vallejo LSW Note: Evaluation of progress towards goal: Home with son's support and [facility] orthopedic PT [employer] Implanted Type Area Spring Repairer Helper Hand Device Identifier Shelf Expiration Date Model / Serial / Lot Shell Actb 56mm Hip 4 Hl Clr Cd [place] G7 F Hmsphr - [id number] - [id number] Implanted:Qt y: 1 on 09/11/2021 by Koby Sánchez DO at [facility] Orthopedic Implant Left: Hip [employer] 06/13/2031 [id number] / [id number] / [id number] Liner Actb 36mm F Vivacit-E Lum G7 Hip Strl Lf - [id number] - [id number] Implanted:Qt y: 1 on 09/11/2021 by Koby Sánchez DO at [facility] Orthopedic Implant Left: Hip [employer] 06/19/2026 [id number] / [id number] / [id number] Stem Fem 4 Hi Os Avenir Cmplt Hip Colr Strl Lf - [id number] Implanted:Qt y: 1 on 09/11/2021 by Koby Sánchez DO at [facility] Orthopedic Implant Left: Hip [employer] [id number] 12/03/2025 [id number] / / [id number] Head Fem 36mm +7mm 06/18 Tpr Vrsy Lgc Zml Hip Strl Rpl [id number] - [id number] Implanted:Qt y: 1 on 09/11/2021 by Koby Sánchez DO at [facility] Orthopedic Implant Left: Hip [employer] [id number] 08/05/2028 [id number] / / [id number] Screw Bn 30mm 6.5mm St Actb Bello Trlg Strl Rpl [id number] + [id number] + [id number] - [id number] - [id number] Implanted:Qt y: 1 on 09/11/2021 by Koby Sánchez, DO at [facility] Screw Left: Hip [employer] [id number] 05/06/2031 [id number] / [id number] / [id number] Screw Bn 30mm 6.5mm St Actb Bello Trlg Strl Rpl [id number] + [id number] + [id number] - [id number] - [id number] Implanted:Qt y: 1 on 09/11/2021 by Koby Sánchez, DO at [facility] Screw Left: Hip [employer] [id number] 03/08/2031 [id number] / [id number] / [id number] Insurance [place]IC[place] [address] Advance Directives * Full Code (Latest Code Status on File) Date Activated Date Inactivated Comments 09/11/2021 1:38 PM 09/13/2021 6:37 PM Care Teams Professor Of Business Administration Relationship Specialty Start Date End Date Rodney Davis MD [address] [place] [address] PCP - General Family Medicine 09/13/21
[2025-01-04 15:04] LABS: Prostate Specific Antigen Dx <0.13 ng/mL (<=4.00)
== END 2025-01-04 13:28 | disposition home or self-care (01) ==
LOC: LAB 13:29
PROVIDERS: PCP Family Medicine
DX: C61 Malignant neoplasm of prostate (principal)
CPT/HCPCS: 36415; 84153

== ENCOUNTER 2025-06-21 13:37 | Outpatient (OUT) | payer MEDICARE, OTHER, SELFPAY ==
--- OUTSIDE RECORDS SUMMARY | 2025-06-21 13:44 | XMS_ITS | Clinical Summary ---
Author Organization [employer] [facility] tem Address [id number] [address] [place] [address] Care Team Providers Care Sewer Pipe Offbearer Name Role Phone Rodney Davis MD Primary Care Provider [phone] Allergies No known active allergies Medications MedicationSigDispense QuantityRefillsLast FilledStart DateEnd DateStatus acetaminophen (TYLENOL) 325 mg tablet Take 650 mg by mouth every 6 (six) hours as needed for pain.Active Active Problems ProblemNoted DateDiagnosed DatePrimary localized osteoarthritis of left hip 09/10/2021 Family History Medical HistoryRelationNameCommentsCOPDFatherNo Known ProblemsMotherRelationName StatusCommentsFatherDeceasedMotherDeceased Social History Tobacco UseTypesPacks/DayYears UsedDateSmoking Tobacco: Every DayCigarettes Smokeless Tobacco: NeverAlcohol UseStandard Drinks/WeekCommentsYes0 (1 standard drink = 0.6 oz pure alcohol)weekends, 2-3 beersChildcareAnswerDate Recorded QjjdkmwppJuwlmta88/12/2019EmploymentAnswerDate RecordedEmploymentUnknown 12/15/2018Sex and Gender InformationValueDate RecordedSex Assigned at BirthNot on fileLegal YagNnnk5202/08/2015 12:01 PM EDTGender IdentityNot on fileSexual OrientationNot on file Last Filed Vital Signs Vital SignReadingTime TakenCommentsBlood Hfitalef725/7703 2:50 PM EST Ldvxl3988 2:50 PM DSMMolbivondqw18.9 ??C (98.5 ??F)09/13/2021 2:50 PM ESTRespiratory Izuf733709/13/2021 2:50 PM ESTOxygen Cbzxzsvgov37%09/13/2021 2:50 PM ESTInhaled Oxygen Concentration--Ihmvnd80.7 kg (200 lb)09/11/2021 9:20 AM EST Ngwydj660.9 cm (6' 0.01 )09/11/2021 9:20 AM ESTBody Mass Index27.12009/11/2021 9:20 AM EST Plan of Treatment Health MaintenanceDue DateLast DoneCommentsDepression Snrdlaakn05/13/1967Tobacco Jqufwacbu92/13/1967Adult BMI Pfobhgtet81/13/1973DTaP,Tdap and Td Vaccines (1 - Tdap)1973Zoster (Shingles) Vaccine (1 of 2)2004Fall Risk Screening 2019Influenza Rlrhmzh3903/06/2025RSV ( or age 60+ yrs) (1 - 1-dose 75+ series)2029 Goals GoalPatient Goal TypeAssociated ProblemsRecent ProgressPatient-Stated?Author Home with son Flor Albert LSW Note: Evaluation of progress towards goal: Home with son's support and [facility] orthopedic PT [employer] ImplantedTypeAreaManufacturerDevice IdentifierShelf Expiration DateModel / Serial / LotShell Actb 56mm Hip 4 Hl Clr Cd [place] G7 F Hmsphr - [id number] - [id number] Implanted:Qty: 1 on 09/11/2021 by Koby Sánchez DO at [facility] ImplantLeft: HipZimmer [id number] / [id number] / [id number] Actb 36mm F Vivacit-E Lum G7 Hip Strl Lf - [id number] - [id number] Implanted:Qty: 1 on 09/11/2021 by Koby Sánchez DO at [facility] ImplantLeft: HipZimmer [id number] / [id number] / [id number] Fem 4 Hi Os Avenir Cmplt Hip Colr Strl Lf - [id number] Implanted:Qty: 1 on 09/11/2021 by Koby Sánchez DO at [facility] ImplantLeft: HipZimmer [id number]/31/2026 [id number] / / [id number] Fem 36mm +7mm 06/18 Tpr Vrsy Lgc Zml Hip Strl Rpl [id number] - [id number] Implanted:Qty: 1 on 09/11/2021 by Koby Sánchez DO at [facility] ImplantLeft: HipZimmer [id number] / / [id number] Bn 30mm 6.5mm St Actb Bello Trlg Strl Rpl [id number] + [id number] + [id number] - [id number] - [id number] Implanted:Qty: 1 on 09/11/20[facility] Hip[facility]immer [id number] / [id number] / [id number] Bn 30mm 6[address]5mm St Actb Bello Trlg Strl Rpl [id number] + [id number] + [id number] - [id number] - [id number] Implanted:Qty: 1 on 09/11/2021 by [facility] HipZimmer [id number] / [id number] / [id number] [place] [address] Advance Directives * Full Code (Latest Code Status on File) Date ActivatedDate InactivatedComments09/11/2021 1:38 PM09/13/2021 6:37 PM Care Teams Team MemberRelationshipSpecialtyStart DateEnd Date Rodney Davis MD [address] [place] [address] PCP - GeneralFamily Medicine09/13/21
--- OUTSIDE RECORDS SUMMARY | 2025-06-21 13:45 | XMS_ITS | Clinical Summary ---
Author Organization [facility] Address [address], [address] [place] [address] Care Team Providers Care Veneer Stock Grader Name Role Phone Unavailable Primary Care Provider Unavailabl e Encounters DateTypeDepartmentCare LfzvMtdufjjuszv21/01/2025 9:45 AM EST - 06/05/2025 11:59 PM ESTHospital Encounter [facility] Physical Therapy [address] [place], [place] [phone] Nicolle Morales PTA Discharge Disposition: Home or Self Care05/29/2025 9:00 AM EST - 05/29/2025 11:59 PM ESTHospital Encounter [facility] Physical Therapy [address] [place], [place] [phone] Nicolle Morales PTA Discharge Disposition: Home or Self Care05/22/2025 9:45 AM EST - 05/22/2025 11:59 PM ESTHospital Encounter [facility] Physical Therapy [address] [place], [place] [phone] Nicolle Morales PTA Discharge Disposition: Home or Self Care05/15/2025 10:30 AM EST - 05/15/2025 11:59 PM ESTHospital Encounter [facility] Physical Therapy [address] [place] [address] Nicolle Morales PTA Discharge Disposition: Home or Self Care05/08/2025 9:30 AM EST - 05/08/2025 11:59 PM ESTHospital Encounter [facility] Physical Therapy [address] [place] [address] Nichole Akhtar, JESSICA Discharge Disposition: Home or Self Carefrom Last 3 Months Social History Tobacco UseTypesPacks/DayYears UsedDateSmoking Tobacco: Never AssessedSex and Gender InformationValueDate RecordedSex Assigned at BirthNot on fileLegal Sex Male08/15/2012 9:01 AM ESTGender IdentityNot on fileSexual OrientationNot on file Plan of Treatment Health MaintenanceDue DateLast DoneCommentsDepression Wnnarb8008/18/1966Hepatitis C bjdfiv2208/18/1972DTaP/Tdap/Td vaccine (1 - Tdap)08/18/19736332Tdpftc04/13/1995 Iqbwouxkkmn06/13/2000FIT/FOBT: Average risk1999Sigmoidoscopy/CT hsqaozmktbcv41/13/2000Pneumococcal 50+ years Vaccine (1 of 1 - PCV)2004 Shingles vaccine (1 of 2)2004Flu vaccine (#1)5COVID-19 Vaccine (1 - season)2025nnual Wellness Visit (Medicare)04/29/2025olorectal Cancer Dsrrtk2504/07/2028Fecal-DNA (Cologuard): Average risk810/09/2024, 2Respiratory Syncytial Virus (RSV) or age 60 yrs+ (1 - 1-dose 75+ series)2029Hepatitis A vaccineAged OutNo longer eligible based on patient's age to complete this topicHepatitis B vaccineAged OutNo longer eligible based on patient's age to complete this topicHib vaccineAged OutNo longer eligible based on patient's age to complete this topicMeningococcal (ACWY) vaccineAged OutNo longer eligible based on patient's age to complete this topicMeningococcal B vaccineAged OutNo longer eligible based on patient's age to complete this topicPolio vaccineAged OutNo longer eligible based on patient's age to complete this topic Insurance MemberSubscriberPlan / Payer (Effective 2019-Present)Name:Abran Arce Relation to Subscriber:SelfName:Abran Arce Payer ID:Not on file Group ID:Not on file Type:Not on file Address: [address] [id number]
--- OUTSIDE RECORDS SUMMARY | 2025-06-21 13:46 | XMS_ITS | Clinical Summary ---
Author Organization [facility] Address [address] [place] [address] Care Team Providers Care Facer Operator Name Role Phone Prasanna Campbell MD Unavailable [phone] Rodney Davis MD Primary Care Provider [phone] Allergies No known active allergies Medications MedicationSigDispense QuantityRefillsLast FilledStart DateEnd DateStatus oxybutynin (DITROPAN) 5 mg tablet Take 1 tablet by mouth three times a day for 7 days. 21 tablet 11/28/2024 11:57 AM EDT5Active Tadalafil (CIALIS) 5 mg tablet Indications:Prostate cancer (HCC)Take 1 tablet by mouth once daily. Take 1-2 hours before sexual activity. 90 tablet 5Active Active Problems ProblemNoted DateDiagnosed DateNicotine use disorder, F17.Tobacco use 11/18/2024 Assessment & Plan (11/18/2024 9:53 AM EDT): -Smokes 5 packs per week -37.5 pack year history Right hip pain11/18/2024 Assessment & Plan (11/18/2024 9:53 AM EDT): -Takes Aleve PRN -Uses cane with ambulation History of DVT (deep vein thrombosis)11/18/2024 Assessment & Plan (11/18/2024 9:54 AM EDT): -Hx in [place] approx 10 years ago -Treated acutely with blood thinner -Denies known recurrences HTN (hypertension)11/18/2024 Assessment & Plan (11/18/2024 9:55 AM EDT): -Patient has been prescribed losartan by his PCP, did not fill the prescription d/t insurance issues and cost -BP today 141/74 -Denies cardiac symptoms -EKG pending Prostate zhqflz3011/01/2024 Encounters DateTypeDepartmentCare PvvpOmhmjsyaiya85/30/2025 10:00 AM EDTOffice Visit Orthopaedics [address] [address] Tian Deshpande MD Pain of right hip (Primary Dx); Primary osteoarthritis of right hip; Tobacco use; Pain due to left hip joint prosthesis, initial encounter; Psoas tendonitis of left side; It band syndrome, left05/04/2025 9:00 AM EDT - 05/04/2025 11:59 PM EDTHospital Encounter Radiology [address] [address] Right hip pain [M25.551] Discharge Disposition: Home05/04/20253923Aoqdwg26/29/2025Orders Only Orthopaedics [address] [facility] [address] [place] [address] Tian Deshpande MD Right hip pain (Primary Dx)03/28/2025 1:10 PM EDTOffice Visit Urology [address] [address] John Saucedo MD Encounter for follow-up surveillance of prostate cancer (Primary Dx); History of prostate cancer; XIANG (stress urinary incontinence), male; Erectile dysfunction following radical epcjaornbsrvl84/23/7556Qjoyod98/23/2025 Patient Outreach Urology [address] [address] John Saucedo MD from Last 3 Months Family History Medical HistoryRelationCommentsColon CancerFatherCervical CancerMotherAnesthesia ProblemsNo Family HistoryRelationStatusCommentsFatherDeceasedMotherDeceased Social History Tobacco UseTypesPacks/DayYears UsedDateSmoking Tobacco: Every DayCigarettes0.850 Smokeless Tobacco: Never Tobacco Cessation:Ready to Q uit: Not Asked; Counseling Given: Not Answered Comments:5 packs per week Alcohol UseStandard Drinks/UguwMfpxbiysUnc55 (1 standard drink = 0.6 oz pure alcohol)12 pack beers per weekSex and Gender InformationValueDate RecordedSex Assigned at BirthNot on fileLegal BwpKziq0909/19/2024 11:35 AM EDTGender Identity Not on fileSexual OrientationNot on file Last Filed Vital Signs Vital SignReadingTime TakenCommentsBlood Yywuzkqj671/7809 1:11 PM EDT Lultw5191 1:11 PM GHTJfblrhaxkkt76.9 ??C (98.4 ??F)11/28/2024 3:10 AM EDTRespiratory Feym347411/28/2024 3:10 AM EDTOxygen Tnuqphsibn56%11/28/2024 7:45 AM EDTInhaled Oxygen Concentration--Kpblzi19.2 kg (212 lb)11/25/2024 8:15 AM EDT Mefqqj374.9 cm (6')11/25/2024 8:15 AM EDTBody Mass Index28.75011/25/2024 8:15 AM EDT Plan of Treatment DateTypeDepartmentCare Team (Latest Contact Info)Cfhpqudhiwz38/23/2025 10:30 AM [facility] [address] [place] [address] Mallory Ernst APRN.CONDITIONING COACH [address] [place] [address] 3 month telephone f/u per cc chartHealth MaintenanceDue DateLast DoneComments Abdominal Aortic Aneurysm Dztuuysai91/13/1955Annual PCP Team Chronic Disease Visit1972Anxiety Khakafcjw55/13/1973Depression Vifrufukq23/13/1973 Hepatitis C Nvhmkwalk92/13/1973DTaP,Tdap,Td Vaccine (1 - Tdap)1973 Pneumococcal Vaccine: 50+ (1 of 2 - PCV)1973Lipid Ullmuszej26/13/1990CT Hhfzrhqboovy83/13/5253Ekpnfbwqxgz23/13/2000Fecal Occult Blood1999 Btbzlasrfiiam80/13/2000Lung Cancer Srsrsxcut10/13/2005RSV Vaccine (1 - Risk 50- 74 years 1-dose series)2004Shingrix Vaccine (1 of 2)2004Medicare Annual Wellness Visit08/06/2019Advance Directive Owzogimqvw06/01/2025Covid-19 Vaccine (1 - 2024- season)2025Influenza Vaccine (#1)2025Diabetes Tqegezxit21, 11/27/2024, 11/26/2024, Additional history exists Cologuard (FIT-DNA), 03/18/2022olorectal Cancer Screening 04/07/2028 Medical Devices ImplantedTypeAreaManufacturerDevice IdentifierShelf Expiration DateModel / Serial / LotScrews And Plate 25 Years AgoNeckLeft Hip Replacement one - Hip Procedures Procedure NamePriorityDate/TimeAssociated DiagnosisCommentsXR HIP GENERAL 3V PELV/AP/LAT WEBUYHreyuri91/30/2025 11:00 AM EDT Right hip pain BASIC METABOLIC YDORXLpfoyes57/26/2025 5:36 AM EDT from Last 3 Months or Most Recently Relevant to Health Maintenance Results * XR HIP GENERAL 3V PELV/AP/LAT RIGHT (05/04/2025 11:00 AM EDT)Anatomical Region LateralityModalityHipOtherSpecimen (Source)Anatomical Location / Laterality Collection Method / VolumeCollection TimeReceived Time05/04/2025 11:00 AM EDT Impressions 05/04/2025 3:37 PM EDT IMPRESSION: Mild right hip osteoarthritis. Chick Grader: PSCB ?? Transcribe Date/Time: May 04 2025 ??3:34P Dictated by : SUNIL BLACKMAN MD This examination was interpreted and the report reviewed and electronically signed by: SUNIL BLACKMAN MD on May 04 2025 ??3:35PM ??EST Narrative 05/04/2025 3:37 PM EDT * * *Final Report* * * DATE OF EXAM: May 04 2025 11:00AM ?? AOX ?? [id number] ??- ??XR HIP 3V PELV+ AP/LAT RT ??/ PROCEDURE REASON: Right hip pain ? * * * * Physician Interpretation * * * * HISTORY: ??Right hip pain ?? . TECHNIQUE: XR HIP 3V PELV+ AP/LAT RT ?? Laterality: ??RIGHT ?? Number of different views (projections): 3 COMPARISON: None available. RESULT: Partial visualization of the left total hip arthroplasty. ??No acute fracture or dislocation. ??Mild right hip osteoarthritis. ??Degenerative changes at the lower lumbar spine, bilateral sacroiliac joints and pubic symphysis. ??No soft tissue swelling. No other significant abnormality. Procedure Note Provider, [facility] - 05/04/2025 * * *Final Report* * * DATE OF EXAM: May 04 2025 11:00AM AOX 5352 - XR HIP 3V PELV+ AP/LAT RT / PROCEDURE REASON: Right hip pain * * * * Physician Interpretation * * * * HISTORY: Right hip pain . TECHNIQUE: XR HIP 3V PELV+ AP/LAT RT Laterality: RIGHT Number of different views (projections): 3 COMPARISON: None available. RESULT: Partial visualization of the left total hip arthroplasty. No acute fracture or dislocation. Mild right hip osteoarthritis. Degenerative changes at the lower lumbar spine, bilateral sacroiliac joints and pubic symphysis. No soft tissue swelling. No other significant abnormality. IMPRESSION IMPRESSION: Mild right hip osteoarthritis. Chick Grader: ANDREW Transcribe Date/Time: May 04 2025 3:34P Dictated by : SUNIL BLACKMAN MD This examination was interpreted and the report reviewed and electronically signed by: SUNIL BLACKMAN MD on May 04 2025 3:35PM EST Authorizing ProviderResult TypeResult StatusBrejermaine Safercho MAYRWQ-JZDV-VSIZBqppy Result * BASIC METABOLIC PANEL (11/28/2024 5:36 AM EDT)ComponentValueRef RangeTest MethodAnalysis TimePerformed AtPathologist DwmzfyyzpXxgblbn3208 - 99 mg/dL 11/28/2024 7:15 AM [facility] LABComment: The [place] [employer] (ADA) provides guidance for cutoff values for fasting glucose andrandom glucose. The ADA defines fasting as no [...] Standards of Medical Care in Diabetes 2016, [place] [employer]. Diabetes Care. 2016.39(Suppl 1). UBK547 - 24 mg/dL11/28/2024 7:15 AM [facility] Creatinine0.900.73 - 1.22 mg/dL11/28/2024 7:15 AM [facility] NKQOuvkjp743964 - 144 mmol/L11/28/2024 7:15 AM [facility] LABPotassium4.43.7 - 5.1 mmol/L11/28/2024 7:15 AM [facility] WGBWeaiawur55446 - 107 mmol/L11/28/2024 7:15 AM [facility] TPGJM44384 - 30 mmol/L11/28/2024 7:15 AM [facility] LABAnion Ann327 - 15 mmol/L11/28/2024 7:15 AM [facility] LABCalcium, Total8.98.5 - 10.2 mg/dL11/28/2024 7:15 AM [facility] LABEstimated Glomerular Filtration Rate92>=60 mL/min/1.73m 11/28/2024 7:15 AM [facility] LABComment:Estimated Glomerular Filtration Rate (eGFR) is calculated using the 2020 CKD-EPI creatinine equation. This equation utilizes serum creatinine, sex, and age as parameters. The creatinine assay has traceable calibration to isotope dilution- mass spectrometry. Refer to KDIGO guidelines for clinical interpretation. In patients with unstable renal function, e.g. those with acute kidney injury, the eGFRmay not accurately reflect actual GFR.Specimen (Source)Anatomical Location / LateralityCollection Method / VolumeCollection TimeReceived TimeBloodBLOOD SPECIMEN / UnknownVenipuncture / Oztoket5911/28/2024 5:36 AM EDT11/28/2024 6:17 AM EDT Narrative Authorizing ProviderResult TypeResult StatusRobaarti Saucedo MDLABORATORYFinal ResultPerforming OrganizationAddressCity/State/ZIP CodePhone Number [facility] [address] [address], from Last 3 Months or Most Recently Relevant to Health Maintenance Insurance JOANN RUELAS [id number] Care Teams Team MemberRelationshipSpecialtyStart DateEnd Rodney Davis MD [facility] [place] [address] [facility]19/24 Prasanna Campbell MD Urology09/19/24
[2025-06-21 15:13] LABS: Prostate Specific Antigen Dx <0.13 ng/mL (<=4.00)
== END 2025-06-21 13:38 | disposition home or self-care (01) ==
LOC: LAB 13:40
PROVIDERS: PCP Family Medicine; Visit Provider Nurse Practitioner Family
DX: Z85.46 Personal history of malignant neoplasm of prostate (principal)
CPT/HCPCS: 36415; 84153